=== PATIENT | male | born 1985 | race Hispanic/Latino ===

== ENCOUNTER → 2023-07-06 07:41 | Outpatient (REF) | payer OTHER, SELFPAY ==
[2023-07-06 08:50] LABS: Glycohemoglobin (HgbA1c) 6.1 % (4.0-5.6)
[2023-07-06 09:09] LABS: ALT (SGPT) 55 U/L (0-50); AST (SGOT) 38 U/L (17-59); Albumin 5.1 g/dl (3.5-5.0); Alkaline Phosphatase 74 U/L (38-126); Blood Urea Nitrogen 22 mg/dl (9-20); Calcium 9.9 mg/dl (8.4-10.2); Carbon Dioxide 24 mmol/L (22-30); Chloride 103 mmol/L (98-107); Glucose 120 mg/dl (70-99); HDL Cholesterol 40 mg/dl; LDL Cholesterol, Calculated 162 mg/dl; Potassium 4.6 mmol/L (3.5-5.1); Sodium 135 mmol/L (135-145); Total Bilirubin 0.6 mg/dl (0.2-1.3); Total Cholesterol 276 mg/dl (50-199); Total Protein 8.2 g/dl (6.3-8.2); Triglyceride 374 mg/dl (10-149); Very Low Density Lipoprotein 74 mg/dl (0-30); eGFR > 60.00
[2023-07-06 09:14] LABS: Vitamin D, 25-OH*** 36.9 ng/mL (30-80)
== END ==
LOC: REG 07:41
PROVIDERS: ATTENDING PHYSICIAN Nurse Practitioner Adult Health
DX: I10 Essential (primary) hypertension (principal); R73.03 Prediabetes; E55.9 Vitamin D deficiency, unspecified; E78.2 Mixed hyperlipidemia
CPT/HCPCS: 36415; 80053; 80061; 82306; 83036

== ENCOUNTER → 2023-09-07 07:45 | Outpatient (REF) | payer OTHER, SELFPAY ==
[2023-09-07 09:35] LABS: ALT (SGPT) 44 U/L (0-50); AST (SGOT) 29 U/L (17-59); Albumin 4.7 g/dl (3.5-5.0); Alkaline Phosphatase 70 U/L (38-126); Blood Urea Nitrogen 13 mg/dl (9-20); Calcium 9.7 mg/dl (8.4-10.2); Carbon Dioxide 26 mmol/L (22-30); Chloride 102 mmol/L (98-107); Glucose 116 mg/dl (70-99); HDL Cholesterol 32 mg/dl; Potassium 4.1 mmol/L (3.5-5.1); Sodium 136 mmol/L (135-145); Total Bilirubin 0.9 mg/dl (0.2-1.3); Total Cholesterol 255 mg/dl (50-199); Total Protein 7.5 g/dl (6.3-8.2); eGFR > 60.00
[2023-09-07 09:38] LABS: Triglyceride 421 mg/dl (10-149)
[2023-09-07 10:08] LABS: LDL Cholesterol, Direct 104 mg/dl
== END ==
LOC: REG 07:45
PROVIDERS: ATTENDING PHYSICIAN Nurse Practitioner Adult Health
DX: E78.2 Mixed hyperlipidemia (principal); R73.03 Prediabetes
CPT/HCPCS: 36415; 80053; 80061; 83721

== ENCOUNTER → 2023-10-19 08:02 | Outpatient (REF) | payer OTHER, SELFPAY ==
[2023-10-19 09:51] LABS: Blood Urea Nitrogen 17 mg/dl (9-20); Calcium 9.9 mg/dl (8.4-10.2); Carbon Dioxide 28 mmol/L (22-30); Chloride 100 mmol/L (98-107); Glucose 123 mg/dl (70-99); Potassium 4.1 mmol/L (3.5-5.1); Sodium 138 mmol/L (135-145); eGFR > 60.00
== END ==
LOC: CLINIC 08:02
PROVIDERS: ATTENDING PHYSICIAN Nurse Practitioner Adult Health
DX: E26.9 Hyperaldosteronism, unspecified (principal); I10 Essential (primary) hypertension
CPT/HCPCS: 36415; 80048